=== PATIENT | male | born 1995 | race Caucasian/White ===

== ENCOUNTER 2016-11-05 18:07 | Inpatient (IN) | payer OTHER ==
[~2016-11-05] VITALS: Ht 170.2 cm; Wt 63.5 kg
[2016-11-05] MEDS ORDERED: LIB5 PO (18:14)
[2016-11-05] MEDS ORDERED: MORPHINE SULFATE 4 MG/ML SYRINGE IVP ONE (18:30)
[2016-11-05] MEDS ORDERED: SODIUM CHLORIDE 0.9% 1,000 ML IV ONE ×2 (18:30→19:45)
[2016-11-05] MEDS ORDERED: ONDANSETRON HCL 4 MG/2 ML VIAL IVP ONE (18:30)
[2016-11-05 18:38] LABS: BASOPHILS % (AUTO) 0.2 % (0.0-2.0); EOSINOPHILS % (AUTO) 0.7 % (1.0-6.0); HEMATOCRIT 46.7 % (41-53); HEMOGLOBIN 15.7 g/dL (13.5-17.5); LYMPHOCYTES # (AUTO) 0.8 K/uL (1.0-4.8); LYMPHOCYTES % (AUTO) 7.2 % (22.0-44.0); MEAN CORPUSCULAR HEMOGLOBIN 30.3 pg (26.0-34.0); MEAN CORPUSCULAR HGB CONC 33.7 G/dL (31.0-37.0); MEAN CORPUSCULAR VOLUME 90 fL (80-100); MONOCYTES # (AUTO) 0.5 K/uL (0.1-1.0); MONOCYTES % (AUTO) 4.3 % (2.0-9.0); NEUTROPHILS # (AUTO) 9.5 K/uL (1.8-7.7); PLATELET COUNT (AUTO) 167 K/uL (150-450); RED BLOOD CELL COUNT(AUTO) 5.19 MIL/uL (4.50-5.90); RED CELL DISTRIBUTION WIDTH 14.2 % (11.5-14.5); WHITE BLOOD COUNT (AUTO) 10.9 K/uL (4.5-11.0)
[2016-11-05 18:41] LABS: NEUTROPHILS % (AUTO) 87.6 % (40.0-70.0)
[2016-11-05 18:56] LABS: ANION GAP 10 mmol/L (8-16); CALCIUM, TOTAL 9.2 mg/dL (8.8-10.5); CARBON DIOXIDE 29 mmol/L (22-29); CHLORIDE 100 mmol/L (98-107); GLOMERULAR FILTR. RATE CALC > 60 mL/min (>60); POTASSIUM 3.5 mmol/L (3.5-5.1); SODIUM SERUM 139 mmol/L (136-145); UREA NITROGEN, BLOOD 8 mg/dL (7-18)
[2016-11-05 19:01] LABS: ALANINE AMINOTRANSFERASE 36 U/L (12-78); ALBUMIN 4.4 g/dL (3.4-5.0); ASPARTATE AMINOTRANSFERASE 39 U/L (15-37); BILIRUBIN,TOTAL 2.1 mg/dL (0.1-1.0); TOTAL PROTEIN, SERUM 7.7 g/dL (6.4-8.2)
[2016-11-05 19:16] LABS: APPEARANCE,URINE CLEAR (CLEAR); GLUCOSE, URINE (UA) NEGATIVE (NEGATIVE); KETONES,URINE 40 mg/dL (NEGATIVE); LEUKOCYTE ESTERASE ,URINE NEGATIVE (NEGATIVE); OCCULT BLOOD,URINE NEGATIVE (NEGATIVE); PH,URINE 7.5 (5.0-8.0); PROTEIN,URINE TRACE (NEGATIVE)
[2016-11-05 19:24] LABS: ADD UA MICROSCOPIC YES
[2016-11-05 19:29] LABS: RBC,URINE None Seen /HPF (0-2); WBC,URINE 0-2 /HPF (0-5)
[2016-11-05] MEDS ORDERED: ONDANSETRON HCL 4 MG/2 ML VIAL IVP PRN (19:45)
[2016-11-05] MEDS ORDERED: MORPHINE SULFATE 4 MG/ML SYRINGE IVP PRN (19:45)
[2016-11-05 21:45] VITALS: BP_SYST 131; BP_SYST 136; BP_DIAS 58; BP_DIAS 86
[2016-11-06] MEDS ORDERED: INFLUENZA VIRUS VACCINE QVS 2016-17 (3YR+)/PF 60 MCG/0.5 ML SYRINGE IM ONE (01:15)
[2016-11-06] MEDS ORDERED: 0.9% SODIUM CHLORIDE 10 ML SYRINGE IVP PRN (01:45)
[2016-11-06] MEDS ORDERED: OxyCODONE HCL/ACETAMINOPHEN 5-325 MG TABLET PO PRN (01:45)
[2016-11-06] MEDS ORDERED: ONDANSETRON HCL 4 MG/2 ML VIAL IVP PRN (01:45)
[2016-11-06] MEDS: DOCUSATE SODIUM 100 MG CAPSULE PO SCH ×2 (01:45→09:55)
[2016-11-06] MEDS ORDERED: ChlordiazePOXIDE HCL 25 MG CAPSULE PO PRN (01:45)
[2016-11-06] MEDS: SODIUM CHLORIDE 0.9% 1,000 ML IV SCH ×3 (02:56→22:57)
[2016-11-06] MEDS: MORPHINE SULFATE 2 MG/ML SYRINGE IVP PRN ×5 (02:56→18:46)
[2016-11-06 06:04] VITALS: BP 112/74
[2016-11-06] MEDS: PANTOPRAZOLE SODIUM 40 MG/VIAL IVP SCH (07:42)
[2016-11-06 08:09] VITALS: BP 119/79
[2016-11-06] MEDS ORDERED: DOCUSATE SODIUM 100 MG CAPSULE PO SCH (09:00)
[2016-11-06] MEDS: FOLIC ACID 1 MG TABLET PO SCH (09:55)
[2016-11-06] MEDS: MULTIVITAMINS, THERAPEUTIC TABLET PO SCH (09:55)
[2016-11-06] MEDS: THIAMINE HCL 100 MG TABLET PO SCH (09:55)
[2016-11-06 15:39] VITALS: BP 123/70
[2016-11-06 19:28] VITALS: BP 125/73
[2016-11-06] MEDS ORDERED: ChlordiazePOXIDE HCL 25 MG CAPSULE PO ONE (20:00)
[2016-11-06] MEDS: OxyCODONE HCL/ACETAMINOPHEN 5-325 MG TABLET PO PRN (22:56)
[2016-11-06 23:41] VITALS: BP 131/71
[2016-11-07] MEDS: OxyCODONE HCL/ACETAMINOPHEN 5-325 MG TABLET PO PRN ×5 (03:00→23:45)
[2016-11-07 04:49] VITALS: BP 112/63
[2016-11-07 06:58] LABS: BASOPHILS # (AUTO) 0.03 K/uL (0.00-0.20); BASOPHILS % (AUTO) 0.5 % (0.0-2.0); EOSINOPHILS # (AUTO) 0.26 K/uL (0.00-0.70); EOSINOPHILS % (AUTO) 4.87 % (1.0-6.0); HEMATOCRIT 39.5 % (41-53); HEMOGLOBIN 13.4 g/dL (13.5-17.5); LYMPHOCYTES # (AUTO) 1.2 K/uL (1.0-4.8); LYMPHOCYTES % (AUTO) 21.3 % (22.0-44.0); MEAN CORPUSCULAR HGB CONC 33.9 G/dL (31.0-37.0); MEAN CORPUSCULAR VOLUME 92 fL (80-100); MONOCYTES # (AUTO) 0.4 K/uL (0.1-1.0); MONOCYTES % (AUTO) 6.8 % (2.0-9.0); NEUTROPHILS # (AUTO) 3.6 K/uL (1.8-7.7); NEUTROPHILS % (AUTO) 66.5 % (40.0-70.0); PLATELET COUNT (AUTO) 119 K/uL (150-450); RED BLOOD CELL COUNT(AUTO) 4.31 MIL/uL (4.50-5.90); RED CELL DISTRIBUTION WIDTH 14.1 % (11.5-14.5); WHITE BLOOD COUNT (AUTO) 5.4 K/uL (4.5-11.0)
[2016-11-07] MEDS ORDERED: ChlordiazePOXIDE HCL 25 MG CAPSULE PO PRN (07:00)
[2016-11-07 07:04] LABS: ANION GAP 13 mmol/L (8-16); CALCIUM, TOTAL 8.4 mg/dL (8.8-10.5); CARBON DIOXIDE 21 mmol/L (22-29); CHLORIDE 104 mmol/L (98-107); CREATININE 0.89 mg/dL (0.60-1.30); GLOMERULAR FILTR. RATE CALC > 60 mL/min (>60); POTASSIUM 3.8 mmol/L (3.5-5.1); SODIUM SERUM 138 mmol/L (136-145); UREA NITROGEN, BLOOD 10 mg/dL (7-18)
[2016-11-07 07:25] VITALS: BP 106/59
[2016-11-07] MEDS: PANTOPRAZOLE SODIUM 40 MG/VIAL IVP SCH (09:03)
[2016-11-07] MEDS: THIAMINE HCL 100 MG TABLET PO SCH (09:08)
[2016-11-07] MEDS: SODIUM CHLORIDE 0.9% 1,000 ML IV SCH ×2 (09:08→21:56)
[2016-11-07] MEDS: FOLIC ACID 1 MG TABLET PO SCH (09:08)
[2016-11-07] MEDS: MULTIVITAMINS, THERAPEUTIC TABLET PO SCH (09:09)
[2016-11-07] MEDS: ChlordiazePOXIDE HCL 25 MG CAPSULE PO SCH ×4 (09:09→21:53)
[2016-11-07 11:38] VITALS: BP 107/69
[2016-11-07 15:13] VITALS: BP 110/67
[2016-11-07 20:14] VITALS: BP 121/83
[2016-11-08 00:31] VITALS: BP 113/70
[2016-11-08 04:41] VITALS: BP 110/59
[2016-11-08] MEDS: MORPHINE SULFATE 2 MG/ML SYRINGE IVP PRN (04:49)
[2016-11-08 07:22] LABS: ANION GAP 8 mmol/L (8-16); CALCIUM, TOTAL 8.7 mg/dL (8.8-10.5); CARBON DIOXIDE 27 mmol/L (22-29); CHLORIDE 106 mmol/L (98-107); CREATININE 0.81 mg/dL (0.60-1.30); GLOMERULAR FILTR. RATE CALC > 60 mL/min (>60); POTASSIUM 4.3 mmol/L (3.5-5.1); SODIUM SERUM 141 mmol/L (136-145); UREA NITROGEN, BLOOD 4 mg/dL (7-18)
[2016-11-08 07:24] VITALS: BP 108/64
[2016-11-08] MEDS: OxyCODONE HCL/ACETAMINOPHEN 5-325 MG TABLET PO PRN (09:46)
[2016-11-08] MEDS: ChlordiazePOXIDE HCL 25 MG CAPSULE PO SCH ×2 (09:46→12:47)
[2016-11-08] MEDS: MULTIVITAMINS, THERAPEUTIC TABLET PO SCH (09:46)
[2016-11-08] MEDS: FOLIC ACID 1 MG TABLET PO SCH (09:46)
[2016-11-08] MEDS: THIAMINE HCL 100 MG TABLET PO SCH (09:46)
[2016-11-08] MEDS: PANTOPRAZOLE SODIUM 40 MG/VIAL IVP SCH (10:17)
[2016-11-08 12:00] VITALS: BP 113/76
[2016-11-09] MEDS ORDERED: ChlordiazePOXIDE HCL 10 MG CAPSULE PO PRN (07:00)
[2016-11-09] MEDS ORDERED: ChlordiazePOXIDE HCL 10 MG CAPSULE PO SCH (09:00)
[2016-11-10] MEDS ORDERED: ChlordiazePOXIDE HCL 10 MG CAPSULE PO PRN (07:00)
== END 2016-11-08 15:00 | disposition home or self-care (01) | DRG 282 ==
LOC: EMS 18:11 → 6N 20:06
PROVIDERS: ADMIT Internal Medicine; ATTEND Internal Medicine
DX: K85.20 Alcohol induced acute pancreatitis without necrosis or infection (principal); F10.239 Alcohol dependence with withdrawal, unspecified; Y90.9 Presence of alcohol in blood, level not specified; Z79.899 Other long term (current) drug therapy
CPT/HCPCS: 76700; 96361; 96374; 96375; 99285; C9113; J2270; J2405; J7030